=== PATIENT | male | born 1995 | race Hispanic/Latino ===

== ENCOUNTER 2016-12-29 20:21 | Emergency (ER) | payer SELFPAY ==
[2016-12-29 20:50] VITALS: BP 133/72
== END 2016-12-29 21:00 | disposition left against medical advice (07) ==
LOC: ED 20:21
DX: R51 Headache (principal); Z53.21 Procedure and treatment not carried out due to patient leaving prior to being seen by health care provider

== ENCOUNTER 2017-07-22 12:54 | Emergency (ER) | payer SELFPAY ==
[2017-07-22 13:01] VITALS: BP 123/73
== END 2017-07-22 16:35 | disposition left against medical advice (07) ==
LOC: ED 12:54
DX: R05 Cough (principal); Z53.21 Procedure and treatment not carried out due to patient leaving prior to being seen by health care provider